=== PATIENT | male | born 1965 | race Two or more races ===

== ENCOUNTER 2021-04-20 12:38 | Emergency (ER) | payer MEDICAID, OTHER ==
[~2021-04-20] VITALS: Ht 175.3 cm; Wt 77.1 kg
[2021-04-20 12:40] VITALS: BP 154/90
== END 2021-04-20 13:21 | disposition home or self-care (01) ==
LOC: ER 12:38
DX: U07.1 COVID-19 (principal); J18.9 Pneumonia, unspecified organism
CPT/HCPCS: 71045